=== PATIENT | male | born 1945 | race Caucasian/White ===

== ENCOUNTER 2017-06-29 19:06 | Inpatient (IN) | payer MEDICARE, BC ==
[~2017-06-29] VITALS: Ht 165.1 cm; Wt 73.0 kg
[2017-06-30] MEDS ORDERED: ALLEGRA-D1 TAB.SR1 PO (02:14)
[2017-06-30] MEDS ORDERED: LASIX80 MG PO (02:14)
[2017-06-30] MEDS ORDERED: HYDRALAZINE HCL50 MG PO (02:15)
[2017-06-30] MEDS ORDERED: METOPROLOL TART50 MG PO (02:16)
[2017-06-30] MEDS ORDERED: CRESTOR40 MG PO (02:16)
[2017-06-30] MEDS ORDERED: TRADJENTA5 MG PO (02:16)
[2017-06-30] MEDS ORDERED: LOVAZA1 G PO (02:17)
[2017-06-30] MEDS ORDERED: PLAVIX75 MG PO (02:17)
[2017-06-30] MEDS ORDERED: ZANTAC300 MG PO (02:18)
[2017-06-30] MEDS ORDERED: GLUCOTROL 5 MG T5 MG PO (02:18)
[2017-06-30] MEDS ORDERED: FLOMAX0.4 MG PO (02:18)
[2017-06-30 02:24] VITALS: BMI 26.0
[2017-06-30 03:51] VITALS: BP 105/73
[2017-06-30 06:33] VITALS: BP 124/73
[2017-06-30 09:06] LABS: BASOPHILS 0.3 % (0-2); EOSINOPHILS 0.7 % (0-7); HEMATOCRIT 26.7 % (42.0-54.0); HEMOGLOBIN 8.5 g/dL (13.5-17.5); LYMPHOCYTES 5.8 % (15-50); MCH 27.1 pg (26.0-34.0); MCHC 31.8 g/dL (31.0-37.0); MEAN PLATELET VOLUME 10.1 fL (7.4-10.4); MONOCYTES 13.4 % (2-11); NEUTROPHILS 79.8 % (40-80); PLATELET COUNT 166 10x3/uL (130-400); RBC 3.14 10x6/uL (4.20-6.10); WBC 5.7 10x3/uL (4.8-10.8)
[2017-06-30 09:22] LABS: ALBUMIN 2.2 g/dL (3.4-5.0); ANION GAP 20.2 mmol/L (8-16); BILIRUBIN - TOTAL 0.15 mg/dL (0.2-1.3); CALCIUM 7.5 mg/dL (8.5-10.1); CARBON DIOXIDE 16.2 mmol/L (21.0-32.0); CREATININE - SERUM 6.9 mg/dL (0.6-1.3); POTASSIUM - SERUM 4.4 mmol/L (3.5-5.1)
[2017-06-30 09:46] VITALS: BP 188/86
[2017-06-30 12:50] VITALS: BP 150/71
[2017-06-30 16:09] VITALS: BP 149/78
[2017-06-30 16:51] LABS: ERYTHROCYTE SEDIMENTATION RATE 30 mm/hr (0-20)
[2017-06-30 20:30] VITALS: BP 146/74
[2017-07-01 00:30] VITALS: BP 134/55
[2017-07-01 04:30] VITALS: BP 166/64
[2017-07-01 05:10] LABS: CALCIUM 7.6 mg/dL (8.5-10.1); CARBON DIOXIDE 18.2 mmol/L (21.0-32.0); POTASSIUM - SERUM 4.2 mmol/L (3.5-5.1)
[2017-07-01 05:16] LABS: BASOPHILS 0.2 % (0-2); EOSINOPHILS 0.5 % (0-7); HEMATOCRIT 24.4 % (42.0-54.0); HEMOGLOBIN 7.9 g/dL (13.5-17.5); IMMATURE GRANULOCYTES 0.2 % (0-5); LYMPHOCYTES 8.7 % (15-50); MCH 27.1 pg (26.0-34.0); MCHC 32.4 g/dL (31.0-37.0); MCV 83.6 fL (80.0-100.0); MEAN PLATELET VOLUME 9.9 fL (7.4-10.4); MONOCYTES 13.4 % (2-11); PLATELET COUNT 175 10x3/uL (130-400); RBC 2.92 10x6/uL (4.20-6.10); RDW 19.2 % (11.5-14.5)
[2017-07-01 07:12] LABS: CREATININE - URINE 59.7 mg/dL (30-125)
[2017-07-01 07:13] LABS: PRO/CRE RATIO URINE 12.8 mg/g; PROTEIN - URINE 762.7 mg/dL (0.0-11.9)
[2017-07-01 08:32] VITALS: BP 137/82
[2017-07-01 08:45] LABS: APPEARANCE CLEAR (CLEAR); BILIRUBIN NEGATIVE (NEGATIVE); COLOR STRAW (YELLOW); GLUCOSE 100 mg/dL (NEGATIVE); KETONE NEGATIVE (NEGATIVE); NITRITE NEGATIVE (NEGATIVE); PROTEIN 3+ mg/dL (NEGATIVE); RED CELLS - URINE 0-5 /hpf (0-5); SPECIFIC GRAVITY 1.015 (1.005-1.020); UROBILINOGEN NORMAL (NORMAL)
[2017-07-01 08:46] LABS: BACTERIA FEW /hpf (NONE SEEN); EPITHELIAL CELLS OCC /hpf (0-5); GRANULAR CAST RARE /lpf (NONE SEEN)
[2017-07-01 13:06] VITALS: Ht 165.1 cm; Wt 73.0 kg
[2017-07-01 15:26] VITALS: BP 140/63
[2017-07-01 21:21] LABS: HEMATOCRIT 21.7 % (42.0-54.0); MCH 27.5 pg (26.0-34.0); MCHC 32.7 g/dL (31.0-37.0); MCV 84.1 fL (80.0-100.0); MEAN PLATELET VOLUME 9.7 fL (7.4-10.4); NEUTROPHILS 79.6 % (40-80); PLATELET COUNT 151 10x3/uL (130-400); RBC 2.58 10x6/uL (4.20-6.10); RDW 19.3 % (11.5-14.5)
[2017-07-01 21:35] LABS: HEMOGLOBIN 7.1 g/dL (13.5-17.5)
[2017-07-01 23:57] LABS: INR 0.92 (0.85-1.17)
[2017-07-01 23:58] LABS: ANION GAP 19.1 mmol/L (8-16); CALCIUM 7.9 mg/dL (8.5-10.1); CARBON DIOXIDE 18.5 mmol/L (21.0-32.0); CREATININE - SERUM 7.6 mg/dL (0.6-1.3); POTASSIUM - SERUM 4.6 mmol/L (3.5-5.1)
[2017-07-02] VITALS: BP 131/65
[2017-07-02 04:00] VITALS: BP 121/60
[2017-07-02 06:26] LABS: ANION GAP 21.4 mmol/L (8-16); CALCIUM 7.6 mg/dL (8.5-10.1); CARBON DIOXIDE 16.7 mmol/L (21.0-32.0); CREATININE - SERUM 7.5 mg/dL (0.6-1.3); PHOSPHOROUS 8.5 mg/dL (2.5-4.9); POTASSIUM - SERUM 5.1 mmol/L (3.5-5.1)
[2017-07-02 07:13] LABS: HEMATOCRIT 22.7 % (42.0-54.0); HEMOGLOBIN 7.6 g/dL (13.5-17.5); LYMPHOCYTES 5.6 % (15-50); MCHC 33.5 g/dL (31.0-37.0); MCV 83.8 fL (80.0-100.0); MEAN PLATELET VOLUME 10.6 fL (7.4-10.4); NEUTROPHILS 82.6 % (40-80); PLATELET COUNT 155 10x3/uL (130-400); RBC 2.71 10x6/uL (4.20-6.10); RDW 18.9 % (11.5-14.5); WBC 5.4 10x3/uL (4.8-10.8)
[2017-07-02 09:13] VITALS: BP 112/62
[2017-07-02 09:15] LABS: FOLATE (FOLIC ACID) - SERUM >20.0 ng/mL (>3.0)
[2017-07-02 13:46] VITALS: BP 131/67
[2017-07-03 04:00] VITALS: BP 135/63
[2017-07-03 05:54] LABS: BASOPHILS 0.3 % (0-2); EOSINOPHILS 5.7 % (0-7); IMMATURE GRANULOCYTES 0.3 % (0-5); MCH 28.4 pg (26.0-34.0); MCHC 33.3 g/dL (31.0-37.0); MCV 85.3 fL (80.0-100.0); MEAN PLATELET VOLUME 10.2 fL (7.4-10.4); MONOCYTES 15.3 % (2-11); NEUTROPHILS 65.4 % (40-80); PLATELET COUNT 140 10x3/uL (130-400); RDW 16.6 % (11.5-14.5)
[2017-07-03 06:17] LABS: HEMATOCRIT 27.9 % (42.0-54.0); HEMOGLOBIN 9.3 g/dL (13.5-17.5); RBC 3.27 10x6/uL (4.20-6.10); WBC 3.9 10x3/uL (4.8-10.8)
[2017-07-03 06:54] LABS: ANION GAP 19.1 mmol/L (8-16); CALCIUM 7.7 mg/dL (8.5-10.1); CREATININE - SERUM 5.7 mg/dL (0.6-1.3); POTASSIUM - SERUM 4.4 mmol/L (3.5-5.1)
[2017-07-03 06:59] LABS: CARBON DIOXIDE 21.3 mmol/L (21.0-32.0)
[2017-07-03 08:21] LABS: ANTI-GLOMERULAR BASMENT MEMBRN 3 units (0-20)
[2017-07-03 09:10] VITALS: BP 137/60
[2017-07-03 10:20] LABS: UPE RAND - ALBUMIN 56.1 % (()); UPE RAND - ALPHA 1 GLOBULIN 7.6 % (()); UPE RAND - ALPHA 2 GLOBULIN 12.9 % (()); UPE RAND - BETA GLOBULIN 14.2 % (()); UPE RAND - GAMMA GLOBULIN 9.2 % (())
[2017-07-03 10:20] LABS: SPE - ALBUMIN 2.2 g/dL (2.9-4.4); SPE - ALPHA-1 GLOBULIN 0.3 g/dL (0.0-0.4); SPE - ALPHA-2 GLOBULIN 0.8 g/dL (0.4-1.0); SPE - BETA GLOBULIN 0.6 g/dL (0.7-1.3); SPE - GAMMA GLOBULIN 0.3 g/dL (0.4-1.8); SPE - M-SPIKE Not Observed g/dL (Not Observed); SPE - TOTAL PROTEIN 4.3 g/dL (6.0-8.5)
[2017-07-03 11:17] LABS: ANA REFLEX - DIRECT Negative (Negative)
[2017-07-03 12:16] VITALS: BP 149/82
[2017-07-03] MEDS ORDERED: TAMIFLU75 MG PO (14:52)
[2017-07-03] MEDS ORDERED: VENTOLIN HFA18 GM INH (14:58)
[2017-07-03 16:13] LABS: ANCA - ANTIMYELOPEROXIDASE <9.0 U/mL (0.0-9.0); ANCA - ANTIPROTEINASE 3 <3.5 U/mL (0.0-3.5); ANCA - ATYPICAL <1:20 titer (Neg:<1:20); ANCA - CYTOPLASMIC <1:20 titer (Neg:<1:20); ANCA - PERINUCLEAR <1:20 titer (Neg:<1:20)
[2017-07-04 13:16] LABS: HEP B CORE AB TOTAL Negative (Negative)
== END 2017-07-03 16:32 | disposition home or self-care (01) | DRG 682 ==
LOC: D.M2 19:06 → D.SDCHOLD 07-02 11:50 → D.M2 07-03 16:32
PROVIDERS: Internal Medicine Nephrology; Surgery
PROC: B244ZZZ Ultrasonography of Right Heart (ICD-10-PCS; 2017-07-01)
PROC: 5A1D70Z Performance of Urinary Filtration, Intermittent, Less than 6 Hours Per Day (ICD-10-PCS; 2017-07-01)
PROC: 02H633Z Insertion of Infusion Device into Right Atrium, Percutaneous Approach (ICD-10-PCS; principal; 2017-07-01 15:45)
DX: I12.0 Hypertensive chronic kidney disease with stage 5 chronic kidney disease or end stage renal disease (principal); N18.6 End stage renal disease; E11.22 Type 2 diabetes mellitus with diabetic chronic kidney disease; E11.21 Type 2 diabetes mellitus with diabetic nephropathy; E88.09 Other disorders of plasma-protein metabolism, not elsewhere classified; K21.9 Gastro-esophageal reflux disease without esophagitis; I25.10 Atherosclerotic heart disease of native coronary artery without angina pectoris; J10.1 Influenza due to other identified influenza virus with other respiratory manifestations; D63.1 Anemia in chronic kidney disease; E78.5 Hyperlipidemia, unspecified; Z95.1 Presence of aortocoronary bypass graft; Z87.891 Personal history of nicotine dependence; Z95.5 Presence of coronary angioplasty implant and graft; R51 Headache